=== PATIENT | male | born 1980 | race Caucasian/White ===

== ENCOUNTER 2017-02-18 16:58 | Emergency (ER) | payer SELFPAY ==
[~2017-02-18] VITALS: Ht 172.7 cm; Wt 73.0 kg
[2017-02-18 17:00] VITALS: Ht 172.7 cm; Wt 73.0 kg
[2017-02-18] MEDS ORDERED: AMOX500C2 PO (17:23)
--- NOTE | 2017-02-18 17:23 | ERD ---
ER Documentation Chief Complaint Date/Time DATE: 02/18/17 TIME: 17:22 Chief Complaint Pt present with L ear pain and dizziness X 30 minutes. HPI This is a 36-year-old male presents to the emergency room for evaluation of ear pain. The patient states that he has had right-sided ear pain for the past 24 hours and states that he is hearing his ear pop. He denies any trauma to the area, came to the emergency room for evaluation. He denies any fevers associated with this any nausea vomiting denies any aggravating or relieving factors for his pain ROS All systems reviewed and are negative except as per history of present illness. Physical Exam Vitals Vital Signs Date Time Temp Pulse Resp B/P Pulse Ox O2 Delivery O2 Flow Rate FiO2 02/18/17 17:00 98.1 112 18 133/75 96 Physical Exam INITIAL VITAL SIGNS: Reviewed by me GENERAL: The patient is well developed and appropriate for usual state of health in no apparent distress HEENT: Erythematous right tympanic membrane, pupils equal, round, and reactive to light. EOMI. There is no scleral icterus. NECK: C-spine is soft and supple, there is no meningismus. There is no cervical lymphadenopathy. LUNGS: Clear to auscultation bilaterally. There are no rales, wheezes or rhonchi. HEART: Regular rate and rhythm, no murmurs, clicks, rubs or gallops. ABDOMEN: Soft, non-tender, non-distended. There are bowel sounds in all four quadrants. No rebound or guarding. EXTREMITIES: There is no peripheral cyanosis or edema. No focal swelling or erythema. NEUROLOGICAL: The patient moves all four extremities with 5/5 strength. Cranial nerves II - XII are intact. Normal gait. Alert and oriented SKIN: There is no apparent rash or petechiae. HEME/LYMPHATIC: There is no evidence of excessive bruising or lymphedema. PSYCHIATRIC: The patient does not appear anxious or depressed. Procedures/MDM This 36-year-old male presents to the ER for evaluation of right-sided ear pain. On examination he is afebrile, nontoxic-appearing and did have a erythematous right tympanic membrane consistent with acute otitis media. He will be discharged home with a prescription for amoxicillin. No signs of mastoiditis at this time Departure Diagnosis: Primary Impression: Otitis media, right Condition: Stable TIERA AGUILAR DO Feb 18, 2017 17:23
== END 2017-02-18 17:32 | disposition home or self-care (01) ==
LOC: FTE 16:58
DX: H66.91 Otitis media, unspecified, right ear (principal)
CPT/HCPCS: 99283